=== PATIENT | female | born 1950 | race Caucasian/White ===

== ENCOUNTER 2018-02-18 15:06 | Inpatient (IN) ==
[2018-02-20] MEDS ORDERED: Temazepam 15 MG CAPSULE PO PRN (16:16)
[2018-02-20] MEDS ORDERED: Simethicone 80 MG TAB.CHEW PO PRN (16:16)
[2018-02-20] MEDS: *HR* Heparin 5,000 UNIT/ML VIAL SQ SCH (17:48)
[2018-02-20] MEDS: Mag Hydrox/Al Hydrox/Simeth 30 ML UDC PO PRN (17:48)
[2018-02-20] MEDS: Ipratropium/Albuterol Neb 3 ML IH SCH (20:40)
[2018-02-20] MEDS: Budesonide/Formoterol 160/4.5 MDI IH SCH (20:40)
[2018-02-20] MEDS: levETIRAcetam 250 MG TABLET PO SCH (21:19)
[2018-02-20] MEDS: Sulfamethoxazole/Trimeth DS 1 EACH TABLET PO SCH (21:20)
[2018-02-20] MEDS: Gabapentin 400 MG CAPSULE PO SCH (21:20)
[2018-02-20] MEDS: Nystatin POWDER 30 GM BOTTLE TP SCH (21:23)
[2018-02-20] MEDS: *HR* OxyCODONE Immed Rel 5 MG TABLET PO PRN (21:46)
[2018-02-21] MEDS: Ipratropium/Albuterol Neb 3 ML IH SCH ×5 (00:57→17:35)
[2018-02-21 05:44] LABS: Basophils % 0.2 %; Eosinophils # 0.2 K/mcL (0.0-0.6); Eosinophils % 3.9 %; Hematocrit 36.3 % (35.3-44.9); Hemoglobin 10.8 g/dL (11.5-15.4); Immature Granulocytes % 0.4 % (0-4); Lymphocytes # 0.6 K/mcL (0.6-4.6); Lymphocytes % 12.4 %; Mean Corpuscular HGB Conc 29.8 g/dL (31.6-35.5); Mean Corpuscular Volume 87.3 fL (83.0-100.0); Mean Platelet Volume 12.2 fL (9.4-12.4); Monocytes # 0.3 K/mcL (0.0-1.3); Monocytes % 6.3 %; Neutrophils # 3.9 K/mcL (1.6-8.9); Platelet Count 138 K/mcL (140-400); Red Blood Count 4.16 M/mcL (3.82-4.97); Red Cell Distribution Width 17.6 % (11.5-14.5); Segmented Neutrophils % 76.8 %
[2018-02-21 06:04] LABS: BUN/Creatinine Ratio 11 (6-26); Blood Urea Nitrogen 8 mg/dL (8-23); Calcium 8.8 mg/dL (8.6-10.3); Carbon Dioxide 34 mEq/L (23-29); Chloride 99 mEq/L (98-107); Glucose 98 mg/dL (70-105); Osmolality,Calculated 282 (280-300); Potassium 3.6 mEq/L (3.5-5.1); Sodium 137 mEq/L (136-145); eGFR For African Americans > 60 (> 60); eGFR For Non-African Americans > 60 (> 60)
[2018-02-21] MEDS: *HR* OxyCODONE Immed Rel 5 MG TABLET PO PRN ×3 (06:21→21:58)
[2018-02-21] MEDS: *HR* Heparin 5,000 UNIT/ML VIAL SQ SCH ×2 (06:21→18:35)
[2018-02-21] MEDS: Gabapentin 400 MG CAPSULE PO SCH ×3 (08:00→21:46)
[2018-02-21] MEDS: Valsartan 80 MG TABLET PO SCH (08:00)
[2018-02-21] MEDS: Sulfamethoxazole/Trimeth DS 1 EACH TABLET PO SCH ×2 (08:01→21:46)
[2018-02-21] MEDS: Furosemide 40 MG TABLET PO SCH (08:01)
[2018-02-21] MEDS: levETIRAcetam 250 MG TABLET PO SCH ×2 (08:01→21:47)
[2018-02-21] MEDS ORDERED: amLODIPine 5 MG TABLET PO SCH (09:00)
[2018-02-21] MEDS: Budesonide/Formoterol 160/4.5 MDI IH SCH ×2 (09:14→22:22)
[2018-02-21] MEDS: Nystatin POWDER 30 GM BOTTLE TP SCH ×3 (09:47→22:06)
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
[2018-02-21 14:57] LABS: ABG Base Excess 8 mEq/L (-2 to 3); ABG HCO3 36 mEq/L (21-27); ABG Oxygen Saturation 93 % (95-98); ABG PCO2 65 mmHg (35-45); ABG PH 7.36 pH Units (7.32-7.45); ABG PO2 73 mmHg (85-104); ABG TCO2 38 mEq/L (20-26)
[2018-02-21] MEDS: Albuterol 2.5 MG/3 ML NEBULIZER IH PRN (22:21)
[2018-02-22 05:28] LABS: Basophils % 0.2 %; Eosinophils # 0.2 K/mcL (0.0-0.6); Eosinophils % 4.6 %; Hematocrit 36.1 % (35.3-44.9); Hemoglobin 10.5 g/dL (11.5-15.4); Immature Granulocytes % 0.5 % (0-4); Lymphocytes # 0.6 K/mcL (0.6-4.6); Lymphocytes % 13.9 %; Mean Corpuscular HGB Conc 29.1 g/dL (31.6-35.5); Mean Corpuscular Hemoglobin 25.9 pg (28.0-33.3); Mean Corpuscular Volume 89.1 fL (83.0-100.0); Mean Platelet Volume 11.5 fL (9.4-12.4); Monocytes # 0.3 K/mcL (0.0-1.3); Monocytes % 6.5 %; Neutrophils # 3.2 K/mcL (1.6-8.9); Platelet Count 131 K/mcL (140-400); Red Blood Count 4.05 M/mcL (3.82-4.97); Segmented Neutrophils % 74.3 %
[2018-02-22 06:02] LABS: Thyroid Stimulating Hormone 2.293 mcIU/mL (0.340-5.600)
[2018-02-22] MEDS: *HR* Heparin 5,000 UNIT/ML VIAL SQ SCH ×2 (06:20→17:56)
[2018-02-22 09:07] LABS: Folate 3.1 ng/mL (3.0-16.0)
[2018-02-22] MEDS: Mag Hydrox/Al Hydrox/Simeth 30 ML UDC PO PRN (09:48)
[2018-02-22] MEDS: Gabapentin 400 MG CAPSULE PO SCH ×3 (09:49→22:06)
[2018-02-22] MEDS: Sulfamethoxazole/Trimeth DS 1 EACH TABLET PO SCH ×2 (09:49→22:06)
[2018-02-22] MEDS: Valsartan 80 MG TABLET PO SCH (09:49)
[2018-02-22] MEDS: levETIRAcetam 250 MG TABLET PO SCH ×2 (09:49→22:06)
[2018-02-22] MEDS: Furosemide 40 MG TABLET PO SCH (09:50)
[2018-02-22] MEDS: Nystatin POWDER 30 GM BOTTLE TP SCH ×3 (09:55→22:07)
--- NOTE | 2018-02-22 10:03 | Internal Med Progress Note ---
Date of Encounter: 02/22/18 Time of Encounter: 09:55 - Assessment and plan (1) Pneumonia Current Visit: No Status: Suspected Assessment and plan: February 22. Continue Bactrim through February 27. Qualifiers: Pneumonia type: due to methicillin-resistant Staphylococcus aureus (MRSA) Laterality: right Lung location: upper lobe of lung Qualified Code(s): J15.212 - Pneumonia due to Methicillin resistant Staphylococcus aureus (2) Bilateral leg ulcer Current Visit: Yes Status: Acute Assessment and plan: February 22. Continue dressing changes. Zinc level pending Qualifiers: Non-pressure ulcer stage: limited to breakdown of skin Qualified Code(s): L97.911 - Non-pressure chronic ulcer of unspecified part of right lower leg limited to breakdown of skin; L97.921 - Non-pressure chronic ulcer of unspecified part of left lower leg limited to breakdown of skin (3) Anemia Current Visit: Yes Status: Acute Assessment and plan: February 22. Anemia testing shows iron 49, transferrin saturation 15%, transferrin 238, ferritin 88, B12 279, and folate 3.1. Continue to monitor CBC. Qualifiers: Anemia type: unspecified type Qualified Code(s): D64.9 - Anemia, unspecified (4) Elevated brain natriuretic peptide (BNP) level Current Visit: Yes Status: Acute Assessment and plan: February 25. Improved at 309. Continue present regimen. (5) Hypertension Current Visit: No Status: Chronic Assessment and plan: February 25. Blood pressure stable. Remain off Norvasc and continue Diovan. Qualifiers: Hypertension type: essential hypertension Qualified Code(s): I10 - Essential (primary) hypertension (6) CKD (chronic kidney disease) stage 3, GFR 30-59 ml/min Current Visit: No Status: Chronic Assessment and plan: February 25. Monitor renal indices. (7) Encephalopathy Current Visit: No Status: Acute Assessment and plan: February 25. Resolved. Continue present regimen. - Subjective Interval history: February 22. She has no new complaints. She states she is not planning to return to her previous apartment but is uncertain where she will be living after discharge. - Constitutional Vitals: Temp Pulse Resp BP Pulse Ox 98.0 F 74 18 115/61 91 02/22/18 07:11 02/22/18 07:11 02/22/18 07:11 02/22/18 07:11 02/22/18 07:11 Exam: She is sitting in bed and appears in no acute distress. She is much more alert and talkative than yesterday. I reviewed her medications and lab results. Internal Medicine: Result - Labs CBC & Chem 7: 02/22/18 05:21 02/21/18 05:07 Labs: Short CBC 02/22/18 Range/Units 05:21 WBC 4.3 (4.3-11.1) K/mcL Hgb 10.5 L (11.5-15.4) g/dL Hct 36.1 (35.3-44.9) % Plt Count 131 L (140-400) K/mcL Neutrophils # 3.2 (1.6-8.9) K/mcL - ABG Interpretation ABG results: ABG ABG pH 7.36 pH Units (7.32-7.45) 02/21/18 14:54 ABG pCO2 65 mmHg (35-45) H 02/21/18 14:54 ABG pO2 73 mmHg (85-104) L 02/21/18 14:54 ABG O2 Saturation 93 % (95-98) L 02/21/18 14:54 Consult Discharge Plan - Plan Referrals: Beau Andrew MD [Primary Care Provider] - 1 week
[2018-02-22] MEDS: Budesonide/Formoterol 160/4.5 MDI IH SCH ×2 (10:38→22:30)
[2018-02-22] MEDS: *HR* OxyCODONE Immed Rel 5 MG TABLET PO PRN ×2 (18:01→22:12)
[2018-02-22] MEDS: Lactobacillus 1 EACH CAP.SPRINK PO SCH (22:05)
[2018-02-22] MEDS: Albuterol 2.5 MG/3 ML NEBULIZER IH PRN (22:30)
[2018-02-23] MEDS: *HR* Heparin 5,000 UNIT/ML VIAL SQ SCH ×2 (06:29→17:49)
[2018-02-23] MEDS: Multivit/Ca/Min/Fe/FA 1 TAB TABLET PO SCH (10:34)
[2018-02-23] MEDS: levETIRAcetam 250 MG TABLET PO SCH ×2 (10:34→21:14)
[2018-02-23] MEDS: Sulfamethoxazole/Trimeth DS 1 EACH TABLET PO SCH ×2 (10:34→21:14)
[2018-02-23] MEDS: Lactobacillus 1 EACH CAP.SPRINK PO SCH ×2 (10:34→21:13)
[2018-02-23] MEDS: Gabapentin 400 MG CAPSULE PO SCH ×3 (10:35→21:14)
[2018-02-23] MEDS: Valsartan 80 MG TABLET PO SCH (10:35)
[2018-02-23] MEDS: Furosemide 40 MG TABLET PO SCH (10:35)
[2018-02-23] MEDS: Budesonide/Formoterol 160/4.5 MDI IH SCH ×2 (11:04→22:16)
[2018-02-23] MEDS: Nystatin POWDER 30 GM BOTTLE TP SCH ×3 (11:45→21:14)
[2018-02-23] MEDS: *HR* OxyCODONE Immed Rel 5 MG TABLET PO PRN ×2 (17:49→22:22)
[2018-02-24] MEDS: *HR* Heparin 5,000 UNIT/ML VIAL SQ SCH ×2 (05:14→16:52)
[2018-02-24] MEDS: levETIRAcetam 250 MG TABLET PO SCH ×2 (09:29→20:55)
[2018-02-24] MEDS: Multivit/Ca/Min/Fe/FA 1 TAB TABLET PO SCH (09:30)
[2018-02-24] MEDS: Furosemide 40 MG TABLET PO SCH (09:30)
[2018-02-24] MEDS: Sulfamethoxazole/Trimeth DS 1 EACH TABLET PO SCH ×2 (09:30→20:56)
[2018-02-24] MEDS: Valsartan 80 MG TABLET PO SCH (09:30)
[2018-02-24] MEDS: Lactobacillus 1 EACH CAP.SPRINK PO SCH ×2 (09:30→20:56)
[2018-02-24] MEDS: Nystatin POWDER 30 GM BOTTLE TP SCH ×3 (09:30→21:06)
[2018-02-24] MEDS: Gabapentin 400 MG CAPSULE PO SCH ×3 (09:30→20:56)
[2018-02-24] MEDS: Budesonide/Formoterol 160/4.5 MDI IH SCH ×2 (10:26→23:05)
--- NOTE | 2018-02-24 12:13 | Internal Med Progress Note ---
Date of Encounter: 02/24/18 Time of Encounter: 12:05 - Assessment and plan (1) Pneumonia Current Visit: No Status: Suspected Assessment and plan: February 22. Continue Bactrim through February 27. Qualifiers: Pneumonia type: due to methicillin-resistant Staphylococcus aureus (MRSA) Laterality: right Lung location: upper lobe of lung Qualified Code(s): J15.212 - Pneumonia due to Methicillin resistant Staphylococcus aureus (2) Bilateral leg ulcer Current Visit: Yes Status: Acute Assessment and plan: February 22. Continue dressing changes. Zinc level pending Qualifiers: Non-pressure ulcer stage: limited to breakdown of skin Qualified Code(s): L97.911 - Non-pressure chronic ulcer of unspecified part of right lower leg limited to breakdown of skin; L97.921 - Non-pressure chronic ulcer of unspecified part of left lower leg limited to breakdown of skin (3) Anemia Current Visit: Yes Status: Acute Assessment and plan: February 22. Anemia testing shows iron 49, transferrin saturation 15%, transferrin 238, ferritin 88, B12 279, and folate 3.1. Continue to monitor CBC. February 24. Recheck labs in a.m. Qualifiers: Anemia type: unspecified type Qualified Code(s): D64.9 - Anemia, unspecified (4) Elevated brain natriuretic peptide (BNP) level Current Visit: Yes Status: Acute Assessment and plan: February 22. Improved at 309. Continue present regimen. (5) Hypertension Current Visit: No Status: Chronic Assessment and plan: February 22. Blood pressure stable. Remain off Norvasc and continue Diovan. Qualifiers: Hypertension type: essential hypertension Qualified Code(s): I10 - Essential (primary) hypertension (6) CKD (chronic kidney disease) stage 3, GFR 30-59 ml/min Current Visit: No Status: Chronic Assessment and plan: February 22. Monitor renal indices. February 24. Recheck labs in a.m. (7) Encephalopathy Current Visit: No Status: Acute Assessment and plan: February 25. Resolved. Continue present regimen. - Subjective Interval history: February 22. She has no new complaints. She states she is not planning to return to her previous apartment but is uncertain where she will be living after discharge. February 24. She has no new complaints and feels well. - Constitutional Vitals: Temp Pulse Resp BP Pulse Ox 98.2 F 80 16 103/54 98 02/24/18 06:52 02/24/18 06:52 02/24/18 10:26 02/24/18 06:52 02/24/18 10:26 Exam: She is resting comfortably on the side of bed and appears in no acute distress. Her affect is cheerful. I reviewed her medications and lab results. Internal Medicine: Result - Labs CBC & Chem 7: 02/22/18 05:21 02/21/18 05:07 - ABG Interpretation ABG results: ABG ABG pH 7.36 pH Units (7.32-7.45) 02/21/18 14:54 ABG pCO2 65 mmHg (35-45) H 02/21/18 14:54 ABG pO2 73 mmHg (85-104) L 02/21/18 14:54 ABG O2 Saturation 93 % (95-98) L 02/21/18 14:54 Consult Discharge Plan - Plan Referrals: Beau Andrew MD [Primary Care Provider] - 1 week
[2018-02-24] MEDS: *HR* OxyCODONE Immed Rel 5 MG TABLET PO PRN ×2 (16:52→20:58)
[2018-02-25] MEDS: *HR* Heparin 5,000 UNIT/ML VIAL SQ SCH ×2 (06:06→20:58)
[2018-02-25 07:04] LABS: Eosinophils # 0.2 K/mcL (0.0-0.6); Eosinophils % 3.7 %; Hematocrit 33.5 % (35.3-44.9); Hemoglobin 9.9 g/dL (11.5-15.4); Immature Granulocytes % 0.5 % (0-4); Lymphocytes # 0.6 K/mcL (0.6-4.6); Lymphocytes % 15.5 %; Mean Corpuscular HGB Conc 29.6 g/dL (31.6-35.5); Mean Corpuscular Hemoglobin 26.5 pg (28.0-33.3); Mean Corpuscular Volume 89.6 fL (83.0-100.0); Mean Platelet Volume 11.8 fL (9.4-12.4); Monocytes # 0.3 K/mcL (0.0-1.3); Monocytes % 8.5 %; Neutrophils # 2.9 K/mcL (1.6-8.9); Platelet Count 114 K/mcL (140-400); Red Blood Count 3.74 M/mcL (3.82-4.97); Red Cell Distribution Width 18.2 % (11.5-14.5); Segmented Neutrophils % 71.8 %
[2018-02-25 07:31] LABS: Calcium 8.8 mg/dL (8.6-10.3); Potassium 4.5 mEq/L (3.5-5.1)
[2018-02-25] MEDS: levETIRAcetam 250 MG TABLET PO SCH ×2 (09:59→20:59)
[2018-02-25] MEDS: Multivit/Ca/Min/Fe/FA 1 TAB TABLET PO SCH (09:59)
[2018-02-25] MEDS: Furosemide 40 MG TABLET PO SCH (09:59)
[2018-02-25] MEDS: Lactobacillus 1 EACH CAP.SPRINK PO SCH ×2 (10:00→20:59)
[2018-02-25] MEDS: Valsartan 80 MG TABLET PO SCH (10:00)
[2018-02-25] MEDS: Sulfamethoxazole/Trimeth DS 1 EACH TABLET PO SCH ×2 (10:00→20:59)
[2018-02-25] MEDS: Gabapentin 400 MG CAPSULE PO SCH ×3 (10:01→20:59)
[2018-02-25] MEDS: Budesonide/Formoterol 160/4.5 MDI IH SCH ×2 (10:06→21:57)
[2018-02-25] MEDS: Nystatin POWDER 30 GM BOTTLE TP SCH ×3 (15:03→20:59)
[2018-02-25] MEDS: *HR* OxyCODONE Immed Rel 5 MG TABLET PO PRN ×2 (15:19→22:15)
[2018-02-26] MEDS: *HR* Heparin 5,000 UNIT/ML VIAL SQ SCH ×2 (06:06→18:08)
[2018-02-26] MEDS: levETIRAcetam 250 MG TABLET PO SCH ×2 (08:02→20:24)
[2018-02-26] MEDS: Furosemide 40 MG TABLET PO SCH (08:02)
[2018-02-26] MEDS: Sulfamethoxazole/Trimeth DS 1 EACH TABLET PO SCH ×2 (08:03→20:21)
[2018-02-26] MEDS: Valsartan 80 MG TABLET PO SCH (08:03)
[2018-02-26] MEDS: Lactobacillus 1 EACH CAP.SPRINK PO SCH ×2 (08:04→20:24)
[2018-02-26] MEDS: Multivit/Ca/Min/Fe/FA 1 TAB TABLET PO SCH (08:05)
[2018-02-26] MEDS: Gabapentin 400 MG CAPSULE PO SCH ×3 (08:05→20:21)
[2018-02-26] MEDS: Nystatin POWDER 30 GM BOTTLE TP SCH ×3 (08:05→20:24)
[2018-02-26] MEDS: Budesonide/Formoterol 160/4.5 MDI IH SCH ×2 (10:42→21:38)
[2018-02-26] MEDS: *HR* OxyCODONE Immed Rel 5 MG TABLET PO PRN ×2 (16:27→22:13)
[2018-02-26] MEDS: Albuterol 2.5 MG/3 ML NEBULIZER IH PRN (21:38)
[2018-02-26] MEDS: Mag Hydrox/Al Hydrox/Simeth 30 ML UDC PO PRN (22:12)
[2018-02-27] MEDS: *HR* OxyCODONE Immed Rel 5 MG TABLET PO PRN ×4 (05:21→22:05)
[2018-02-27] MEDS: *HR* Heparin 5,000 UNIT/ML VIAL SQ SCH ×2 (05:21→16:55)
[2018-02-27] MEDS: Lactobacillus 1 EACH CAP.SPRINK PO SCH ×2 (09:49→21:31)
[2018-02-27] MEDS: levETIRAcetam 250 MG TABLET PO SCH ×2 (09:49→21:31)
[2018-02-27] MEDS: Sulfamethoxazole/Trimeth DS 1 EACH TABLET PO SCH ×2 (09:49→21:31)
[2018-02-27] MEDS: Multivit/Ca/Min/Fe/FA 1 TAB TABLET PO SCH (09:49)
[2018-02-27] MEDS: Valsartan 80 MG TABLET PO SCH (09:49)
[2018-02-27] MEDS: Furosemide 40 MG TABLET PO SCH (09:50)
[2018-02-27] MEDS: Gabapentin 400 MG CAPSULE PO SCH ×3 (09:50→21:35)
[2018-02-27] MEDS: Nystatin POWDER 30 GM BOTTLE TP SCH ×3 (09:50→21:32)
[2018-02-27] MEDS: Budesonide/Formoterol 160/4.5 MDI IH SCH ×2 (11:09→22:39)
--- NOTE | 2018-02-27 14:32 | Internal Med Progress Note ---
Date of Encounter: 02/27/18 Time of Encounter: 14:20 - Assessment and plan (1) Pneumonia Current Visit: No Status: Suspected Assessment and plan: February 22. Continue Bactrim through February 27. February 27. Will discontinue antibiotic and probiotic today. Qualifiers: Pneumonia type: due to methicillin-resistant Staphylococcus aureus (MRSA) Laterality: right Lung location: upper lobe of lung Qualified Code(s): J15.212 - Pneumonia due to Methicillin resistant Staphylococcus aureus (2) Bilateral leg ulcer Current Visit: Yes Status: Acute Assessment and plan: February 22. Continue dressing changes. Zinc level pending February 27. Zinc normal at 65. Continue present management Qualifiers: Non-pressure ulcer stage: limited to breakdown of skin Qualified Code(s): L97.911 - Non-pressure chronic ulcer of unspecified part of right lower leg limited to breakdown of skin; L97.921 - Non-pressure chronic ulcer of unspecified part of left lower leg limited to breakdown of skin (3) Anemia Current Visit: Yes Status: Acute Assessment and plan: February 22. Anemia testing shows iron 49, transferrin saturation 15%, transferrin 238, ferritin 88, B12 279, and folate 3.1. Continue to monitor CBC. February 24. Recheck labs in a.m. February 27. Hemoglobin slightly decreased at 9.9 on 02/25/2018. Recheck CBC in a.m. Qualifiers: Anemia type: unspecified type Qualified Code(s): D64.9 - Anemia, unspecified (4) Elevated brain natriuretic peptide (BNP) level Current Visit: Yes Status: Acute Assessment and plan: February 22. Improved at 309. Continue present regimen. February 27. Further improved to 138 on 02/25/2018. Continue present management. (5) Hypertension Current Visit: No Status: Chronic Assessment and plan: February 22. Blood pressure stable. Remain off Norvasc and continue Diovan. Qualifiers: Hypertension type: essential hypertension Qualified Code(s): I10 - Essential (primary) hypertension (6) CKD (chronic kidney disease) stage 3, GFR 30-59 ml/min Current Visit: No Status: Chronic Assessment and plan: February 22. Monitor renal indices. February 24. Recheck labs in a.m. February 27. Recheck labs in a.m. (7) Encephalopathy Current Visit: No Status: Acute Assessment and plan: February 25. Resolved. Continue present regimen. - Subjective Interval history: February 22. She has no new complaints. She states she is not planning to return to her previous apartment but is uncertain where she will be living after discharge. February 24. She has no new complaints and feels well. February 27. She has no new complaints and feels well. - Constitutional Vitals: Temp Pulse Resp BP Pulse Ox 97.6 F 89 16 128/60 97 02/27/18 07:00 02/27/18 07:00 02/27/18 11:09 02/27/18 07:00 02/27/18 11:09 Exam: She is resting comfortably in bed and appears in no acute distress. Her affect is bright and cheerful. Extremities show 0-trace pitting edema. She does not appear dyspneic wearing oxygen by nasal cannula. I reviewed her medications and lab results. Internal Medicine: Result - Labs CBC & Chem 7: 02/25/18 06:30 02/25/18 06:30 - ABG Interpretation ABG results: ABG ABG pH 7.36 pH Units (7.32-7.45) 02/21/18 14:54 ABG pCO2 65 mmHg (35-45) H 02/21/18 14:54 ABG pO2 73 mmHg (85-104) L 02/21/18 14:54 ABG O2 Saturation 93 % (95-98) L 02/21/18 14:54 Consult Discharge Plan - Plan Referrals: Beau Andrew MD [Primary Care Provider] - 1 week
[2018-02-28] MEDS: *HR* Heparin 5,000 UNIT/ML VIAL SQ SCH ×2 (06:06→17:15)
[2018-02-28 06:07] LABS: Basophils % 0.3 %; Eosinophils # 0.1 K/mcL (0.0-0.6); Eosinophils % 3.5 %; Hematocrit 33.3 % (35.3-44.9); Hemoglobin 9.8 g/dL (11.5-15.4); Immature Granulocytes % 0.3 % (0-4); Lymphocytes # 0.6 K/mcL (0.6-4.6); Lymphocytes % 16.7 %; Mean Corpuscular HGB Conc 29.4 g/dL (31.6-35.5); Mean Corpuscular Hemoglobin 26.3 pg (28.0-33.3); Mean Corpuscular Volume 89.3 fL (83.0-100.0); Mean Platelet Volume 12.6 fL (9.4-12.4); Monocytes # 0.3 K/mcL (0.0-1.3); Monocytes % 8.9 %; Neutrophils # 2.6 K/mcL (1.6-8.9); Platelet Count 108 K/mcL (140-400); Red Blood Count 3.73 M/mcL (3.82-4.97); Red Cell Distribution Width 18.4 % (11.5-14.5); Segmented Neutrophils % 70.3 %
[2018-02-28 06:23] LABS: Potassium 4.2 mEq/L (3.5-5.1)
[2018-02-28] MEDS: Gabapentin 400 MG CAPSULE PO SCH ×3 (09:14→20:43)
[2018-02-28] MEDS: levETIRAcetam 250 MG TABLET PO SCH ×2 (09:14→20:43)
[2018-02-28] MEDS: Sulfamethoxazole/Trimeth DS 1 EACH TABLET PO SCH (09:14)
[2018-02-28] MEDS: Furosemide 40 MG TABLET PO SCH (09:14)
[2018-02-28] MEDS: Multivit/Ca/Min/Fe/FA 1 TAB TABLET PO SCH (09:14)
[2018-02-28] MEDS: Lactobacillus 1 EACH CAP.SPRINK PO SCH (09:14)
[2018-02-28] MEDS: Valsartan 80 MG TABLET PO SCH (09:14)
[2018-02-28] MEDS: Nystatin POWDER 30 GM BOTTLE TP SCH ×3 (09:17→20:43)
[2018-02-28] MEDS: *HR* OxyCODONE Immed Rel 5 MG TABLET PO PRN ×3 (09:20→20:55)
[2018-02-28] MEDS: Budesonide/Formoterol 160/4.5 MDI IH SCH ×2 (09:49→22:45)
[2018-03-01] MEDS: *HR* Heparin 5,000 UNIT/ML VIAL SQ SCH (06:31)
[2018-03-01 08:15] VITALS: BP 134/83
[2018-03-01] MEDS: Budesonide/Formoterol 160/4.5 MDI IH SCH (09:57)
--- NOTE | 2018-03-01 10:27 | Discharge Summary ---
Date of Encounter: 03/01/18 Time of Encounter: 10:18 - Discharge Diagnosis (1) Pneumonia Priority: Primary Status: Resolved Qualifiers: Pneumonia type: due to methicillin-resistant Staphylococcus aureus (MRSA) Laterality: right Lung location: upper lobe of lung Qualified Code(s): J15.212 - Pneumonia due to Methicillin resistant Staphylococcus aureus (2) Bilateral leg ulcer Priority: Secondary Status: Acute Qualifiers: Non-pressure ulcer stage: limited to breakdown of skin Qualified Code(s): L97.911 - Non-pressure chronic ulcer of unspecified part of right lower leg limited to breakdown of skin; L97.921 - Non-pressure chronic ulcer of unspecified part of left lower leg limited to breakdown of skin (3) Anemia Priority: Secondary Status: Acute Qualifiers: Anemia type: unspecified type Qualified Code(s): D64.9 - Anemia, unspecified (4) Elevated brain natriuretic peptide (BNP) level Priority: Secondary Status: Acute (5) Hypertension Priority: Secondary Status: Chronic Qualifiers: Hypertension type: essential hypertension Qualified Code(s): I10 - Essential (primary) hypertension (6) CKD (chronic kidney disease) stage 3, GFR 30-59 ml/min Priority: Secondary Status: Chronic (7) Encephalopathy Priority: Secondary Status: Resolved Hospital course: Ms. Kumar is a 68 year old female who was hospitalized at [facility] February 04-February 20 after presenting with acute on chronic respiratory failure. During her hospital course she required intubation twice. Sputum culture 02/07/2018 grew MRSA. She was given IV vancomycin. She was transitioned to Bactrim DS at discharge to complete a 21 day course of antibiotics. She chose to be declared a DNR CCA DNI. She was discharged to [facility] swing bed for ongoing care needs. Initial orders were written by the emergency room physician. I saw her on February 21 and performed the swing bed history and physical. She continued on Bactrim with lactobacillus through February 27. She remained asymptomatic. Norvasc was discontinued and gabapentin dose reduced because of significant peripheral edema. She had improvement in the edema with medication dosage adjustment. Her blood pressure remained satisfactory off Norvasc. She will remain on this regimen at discharge. BUN and creatinine were stable at 21 and 1.19 respectively on day prior to discharge. She was ordered BiPAP upon discharge to swing bed from [facility]. Upon review of the collected data at [facility] she did not qualify for home BiPAP from the nocturnal pulse ox study. It was explained to her that her PCP could order a formal sleep study if LUIS is suspected. She will be discharged home and follow with her PCP Dr. Andrew within 1 week. - Time Spent with Patient Total time spent providing and/or coordinating discharge services: - Discharge Medications Prescriptions: Gabapentin [Neurontin] 400 mg PO TID 30 Days #90 capsule Home Medications: Atorvastatin [Lipitor] 10 mg PO HS #30 tablet 08/06/16 [Rx] Furosemide [Lasix] 40 mg PO DAILY #30 tablet 08/06/16 [Rx] Buspirone HCl [Buspar] 7.5 mg PO BID 02/04/18 [History] Omeprazole 40 mg PO QAM 02/04/18 [History] Albuterol Sulfate [Albuterol Inhaler] 2 puff IH Q4HR 02/05/18 [History] Budesonide/Formoterol 160/4.5 [Symbicort 160/4.5] 2 puff IH BIDR 02/05/18 [ History] Duloxetine HCl [Cymbalta] 60 mg PO BID 02/05/18 [History] Valsartan [Diovan] 40 mg PO DAILY 02/05/18 [History] levETIRAcetam [Levetiracetam] 1,000 mg PO BID 02/05/18 [History] Ipratropium/Albuterol Neb [Duoneb] 3 ml IH [id number] inhsol 02/18/18 [Rx] Mag Hydrox/Al Hydrox/Simeth [Maalox] 15 ml PO Q6HR PRN udc 02/18/18 [Rx] Nystatin POWDER [Nystop] 1 appl TP TID bottle 02/18/18 [Rx] Simethicone [Gas-X] 80 mg PO TID PRN tab.chew 02/18/18 [Rx] Gabapentin [Neurontin] 400 mg PO TID 30 Days #90 capsule 03/01/18 [Rx] Allergies/Adverse Reactions: 3 Allergy/AdvReac Type Severity Reaction Status Date / Time acetaminophen Allergy Hives Verified 07/21/15 14:58 [From Darvocet-N] Iodinated Contrast- Oral and Allergy Difficulty Verified 07/21/15 14:58 IV Dye Breathing [Iodinated Contrast Media - IV Dye] propoxyphene Allergy Hives Verified 07/21/15 14:58 [From Darvocet-N] Date of admission: 02/20/18 15:55 Primary care physician: Beau Andrew MD Consults: 02/20/18 18:22 PT [Consult to Physical Therapy] [CONS] Routine Comment: Evaluate, develop and implement POC Reason for Consult: weakness Does patient have active BEDREST order?: No Is patient medically & hemodynamically stable?: Yes 02/20/18 18:23 Consult to Occupational Therapy [CONS] Routine Comment: Evaluate, develop and implement POC Reason for Consult: weakness Does patient have active BEDREST order?: No Is patient medically & hemodynamically stable?: Yes - Constitutional Vitals: Temp Pulse Resp BP Pulse Ox 98.5 F 90 16 134/83 96 03/01/18 08:14 03/01/18 08:14 03/01/18 08:14 03/01/18 08:14 03/01/18 08:14 - Patient Status Disposition: Home Health Service Functional capacity at discharge: wheelchair bound - Discharge Instructions Follow Up With: Beau Andrew MD [Primary Care Provider] - 1 week - Diet and Activity Activity: resume usual activities as tolerated, wear oxygen at all times Diet: advance to your usual diet
--- NOTE | 2018-03-01 10:51 | Physician Discharge Referral ---
Home Health/Hosp Referral Info Transfer to: Home Health Attending Provider: John Provider in Charge Post Discharge: PCP Lacie) - Diagnosis (1) Pneumonia Priority: Primary Status: Resolved (2) Bilateral leg ulcer Priority: Secondary Status: Acute (3) Anemia Priority: Secondary Status: Acute (4) Elevated brain natriuretic peptide (BNP) level Priority: Secondary Status: Acute (5) Hypertension Priority: Secondary Status: Chronic (6) CKD (chronic kidney disease) stage 3, GFR 30-59 ml/min Priority: Secondary Status: Chronic (7) Encephalopathy Priority: Secondary Status: Resolved - Respiratory Orders Oxygen / L per min (2 L/m by nasal cannula 12/03) Smoking Cessation: Smoking cessation has been advised. For more information, call the [employer] Tobacco Quit Line at 4-674-AOVS-NOW. - Activity Activity Orders: Chair - Services Needed Following services are medically necessary services: Nursing, Home Health Aide, Physical Therapy, Occupational Therapy - Transfer Medications Prescriptions: Gabapentin [Neurontin] 400 mg PO TID 30 Days #90 capsule Home Medications: Atorvastatin [Lipitor] 10 mg PO HS #30 tablet 08/06/16 [Rx] Furosemide [Lasix] 40 mg PO DAILY #30 tablet 08/06/16 [Rx] Buspirone HCl [Buspar] 7.5 mg PO BID 02/04/18 [History] Omeprazole 40 mg PO QAM 02/04/18 [History] Albuterol Sulfate [Albuterol Inhaler] 2 puff IH Q4HR 02/05/18 [History] Budesonide/Formoterol 160/4.5 [Symbicort 160/4.5] 2 puff IH BIDR 02/05/18 [ History] Duloxetine HCl [Cymbalta] 60 mg PO BID 02/05/18 [History] Valsartan [Diovan] 40 mg PO DAILY 02/05/18 [History] levETIRAcetam [Levetiracetam] 1,000 mg PO BID 02/05/18 [History] Ipratropium/Albuterol Neb [Duoneb] 3 ml IH [id number] inhsol 02/18/18 [Rx] Mag Hydrox/Al Hydrox/Simeth [Maalox] 15 ml PO Q6HR PRN udc 02/18/18 [Rx] Nystatin POWDER [Nystop] 1 appl TP TID bottle 02/18/18 [Rx] Simethicone [Gas-X] 80 mg PO TID PRN tab.chew 02/18/18 [Rx] Gabapentin [Neurontin] 400 mg PO TID 30 Days #90 capsule 03/01/18 [Rx] Allergies/Adverse Reactions: 3 Allergy/AdvReac Type Severity Reaction Status Date / Time acetaminophen Allergy Hives Verified 07/21/15 14:58 [From Darvocet-N] Iodinated Contrast- Oral and Allergy Difficulty Verified 07/21/15 14:58 IV Dye Breathing [Iodinated Contrast Media - IV Dye] propoxyphene Allergy Hives Verified 07/21/15 14:58 [From Darvocet-N] Certification: Further, I certify that my clinical findings support that this patient is homebound (i.e. absences from home require considerable and taxing effort and are for medical reasons or mormonism services or infrequently or short duration when for other reasons) because: Homebound Reason: Leaving home requires considerable and taxing effort due to condition (Nonambulatory) Attestation: My signature below is to certify that this patient is under my care and that I, or nurse practitioner, or a physician's neurosurgical physician assistant working with me, has a face-to -face encounter with this patient.
[2018-03-01] MEDS: Furosemide 40 MG TABLET PO SCH (10:54)
[2018-03-01] MEDS: Gabapentin 400 MG CAPSULE PO SCH (10:54)
[2018-03-01] MEDS: Valsartan 80 MG TABLET PO SCH (10:54)
[2018-03-01] MEDS: Multivit/Ca/Min/Fe/FA 1 TAB TABLET PO SCH (10:54)
[2018-03-01] MEDS: levETIRAcetam 250 MG TABLET PO SCH (10:54)
[2018-03-01] MEDS: Nystatin POWDER 30 GM BOTTLE TP SCH (10:55)
[2018-03-01] MEDS: *HR* OxyCODONE Immed Rel 5 MG TABLET PO PRN (10:56)
== END 2018-03-01 13:15 | disposition home health service (06) | DRG 177 ==
LOC: INPPIK 02-20 15:55
PROVIDERS: ADMIT Internal Medicine; ATTEND Internal Medicine